=== PATIENT | female | born 1945 | race Caucasian/White ===

== ENCOUNTER 2019-07-18 09:00 | Emergency (ER) | payer MEDICARE, OTHER, SELFPAY ==
[2019-07-18] VITALS (7 sets, daily range): BP systolic 155–185; BP diastolic 76–85; PULSE 64–83; RESP 16–18; TEMP 36.5; O2SAT 98–99; BMI 22.8
--- NOTE | 2019-07-18 09:34 | DI.RAD.S_ITS ---
PROCEDURE: XR WRIST LT MIN 3V INDICATIONS: injury TECHNIQUE: 3 views of the wrist were acquired. COMPARISON: [facility], CR, XR RIBS LT MIN 3V W CXR1V, 07/18/2019, 9:34. FINDINGS: Bones: There is an impacted, dorsally angulated fracture of the distal radius. There is mild intra-articular involvement. No additional fractures are detected. No radiocarpal dislocation can be seen. No ulnar styloid fracture is seen. Age-appropriate bony degenerative changes are seen. Soft tissues: No suspicious soft tissue calcifications. IMPRESSION: Impacted, dorsally angulated fracture of the distal radius, with intra-articular involvement. Dictated by: Be Byers M.D. on 07/18/2019 at 9:11 Approved by: Be Byers M.D. on 07/18/2019 at 9:12
--- NOTE | 2019-07-18 09:35 | DI.RAD.S_ITS ---
PROCEDURE: XR RIBS LT MIN 3V W CXR1V INDICATIONS: injury TECHNIQUE: 2 views of the left ribs were acquired, along with a single view chest. COMPARISON: [facility], CR, XR WRIST LT MIN 3V, 07/18/2019, 9:34. FINDINGS: Surgical changes and devices: Upper abdominal sutures are seen. Bones and chest wall: No fractures or dislocations. No suspicious bony lesions. Overlying soft tissues appear unremarkable. Age-appropriate bony degenerative changes are seen. Lungs and pleura: No pleural effusions or pneumothorax. Lungs appear clear. Mediastinum: The cardiac contours are within normal limits. The aorta demonstrates calcification and tortuosity. IMPRESSION: No displaced rib fractures can be seen. No pneumothorax. Dictated by: Be Byers M.D. on 07/18/2019 at 9:10 Approved by: Be Byers M.D. on 07/18/2019 at 9:11
--- NOTE | 2019-07-18 11:10 | ED_ITS ---
HPI - Trauma General Chief Complaint: Extremity Injury, Upper Stated Complaint: fall left wrist and rib hurting and prob breathing Source: patient Mode of arrival: Ambulatory History of Present Illness HPI narrative: CC: Slip and fall on a wet deck injuring her left wrist and ribs. HPI: The patient is a 74-year-old female who was at her home on the [place] when she slipped on the wet deck next to the hot tub. She injured her left wrist trying to catch herself from falling and struck her left ribs against to the joseph of the hot tub. The paramedics were called at that point and they wanted to fly her from the [place] however she declined because she did not want to take any pain medication that she is allergic to. She denied any head injury neck injury back injury. She complains that her left lateral ribs are tender and sore. She has been short of breath and mildly coughing on productive of any sputum. She has had no palpitations. The pain has almost caused her to pass out. She denies any belly pain. She has been nauseous but has had no vomiting. She has a mild minimal headache. She was not incontinent of urine or stool. The patient works as an artist. She denies a history of hypertension diabetes mellitus stroke congestive heart failure myocardial infarction. She is right- hand dominant. Related Data Previous Rx's Medication Instructions Recorded ibuprofen 600 mg PO QID PRN #20 tab 07/18/19 ondansetron HCl [Zofran] 8 mg PO Q8H PRN #10 tab 07/18/19 Allergies Allergy/AdvReac Type Severity Reaction Status Date / Time codeine Allergy Verified 07/18/19 09:30 morphine Allergy Verified 07/18/19 09:30 Review of Systems Review of Systems Narrative: The patient's review of systems were all negative except for those mentioned in the history of present illness. Exam Narrative Exam Narrative: PHYSICAL EXAM: CONSTITUTIONAL: Awake, Alert, Oriented, Coherent, Cooperative in in mild distress lying supine in bed. She is splinting and holding her left wrist against her chest. HEAD: AT/NC EENT: PERRL, FROM of eyes, no discharge, No drainage from the ears, Tympanic membranes intact bilaterally, clear EAC No epistaxis or nasal drainage Oral mucosa is moist and pink, posterior pharynx is without erythema or exudate. NECK: Supple, no obvious JVD, Trachea is midline without stridor, no palpable LN .. SPINE: No gross deformity, no palpable tenderness of the cervical, thoracic, lumbar or sacral spine. No CVA tenderness. THORAX: There is no gross deformity, intercostal retractions. However the patient's left lower lateral anterior ribs are exquisitely tender to palpation without crepitus subcutaneous air or palpable deformity. LUNGS: Reveals symmetrical decreased breath sounds bilaterally that are clear. HEART: Normal heart tones, regular rhythm and rate without murmur. ABDOMEN: Soft, non-tender, normal bowel sounds without guarding, rebound, rigidity or palpable mass . EXTREMITIES: The patient's dorsal left wrist and hand are ecchymotic. The patient is exquisitely tender to palpation over the distal left radius. SKIN: The skin over the dorsal distal forearm and proximal left hand is ec chymotic. There is no rash otherwise noted. NEURO: Awake, alert, oriented, conversive, there is no focal facial asymmetry/ cranial nerves II-XII are symmetrical moves all 4 extremities and is ambulatory Initial Vital Signs Initial Vital Signs: Vital Signs Temperature 97.7 F 07/18/19 09:30 Pulse Rate 83 07/18/19 09:30 Respiratory Rate 16 07/18/19 09:30 Blood Pressure 185/85 H 07/18/19 09:30 Pulse Oximetry 99 07/18/19 09:30 Course Course Course Narrative: 1113 the patient is very painful and tender. Her pain is 8 to 10/10 in intensity. She took 2 ibuprofen tablets without any relief. She becomes intensely nauseous and vomiting with opiates. Will administer 8 mg of Zofran IV and then 0.5 mg of Dilaudid. The patient has distracting injuries with her left rib pain and wrist pain. She is now complaining of a headache. Trauma CTs of her head neck and chest will be ordered. X-rays reveal that the patient has a in impacted dorsally angulated fracture of the distal radius extending into the intra-articular joint. X-ray of the left ribs do not reveal any fractures. The patient has in severe pain and discomfort because fractures only show up on x-rays 20% of the time a CT of the patient's chest will be obtained. 1238 CT scan of the patient's head and neck are negative for any acute pathology or hemorrhage. The results of the CT of the chest remain pending. The patient has a fracture distal radius. [address] scan of her chest is negative for any fractures contusions or signs of trauma. The patient will be discharged home. She does not want any pain medicines other than taking Advil. She has been placed in a splint for her wrist which feels much better. She will follow-up with her orthopedic surgeon through [facility] and return to the [facility]. She is headed back to the [place] and then to [place]. 1500 the patient was being discharged and she developed a severe intense nausea secondary to the Dilaudid 0.5 mg IV for her pain and discomfort. She has been administered a total of 16 mg of Zofran without relief. She has been administered 10 mg of Reglan with 25 mg of Benadryl. Orders Ordered: Discontinued Medications Diphenhydramine HCl (Benadryl) 25 mg IV NOW ONE Stop: 07/18/19 15:10 Last Admin: 07/18/19 15:17 Dose: 25 mg Documented by: ELIAS Hydromorphone HCl (Dilaudid) 0.5 mg IV NOW ONE Stop: 07/18/19 11:16 Last Admin: 07/18/19 12:24 Dose: 0.5 mg Documented by: RAFAELA Sodium Chloride (Normal Saline 0.9%) 1,000 mls @ 1,000 mls/hr IV BOLUS ONE Stop: 07/18/19 12:14 Last Infusion: 07/18/19 13:05 Dose: 0 mls/hr Documented by: Admin: 07/18/19 11:40 Dose: 1,000 mls/hr Documented by: RAFAELA Ondansetron HCl 8 mg/ Sodium (Chloride) 54 mls @ 216 mls/hr IV NOW ONE Stop: 07/18/19 11:16 Last Infusion: 07/18/19 11:56 Dose: 0 mls/hr Documented by: Admin: 07/18/19 11:41 Dose: 216 mls/hr Documented by: RAFAELA Ondansetron HCl 8 mg/ Sodium (Chloride) 54 mls @ 216 mls/hr IV NOW ONE Stop: 07/18/19 13:35 Last Infusion: 07/18/19 14:15 Dose: 0 mls/hr Documented by: Admin: 07/18/19 13:59 Dose: 216 mls/hr Documented by: ELIAS Metoclopramide HCl (Reglan) 10 mg IV NOW ONE Stop: 07/18/19 15:10 Vital Signs Vital signs: Vital Signs - 8 hr 07/18/19 14:30 07/18/19 15:00 07/18/19 16:00 Pulse Rate 70 75 79 Respiratory Rate 16 16 Blood Pressure [Right Arm] 155/76 H 183/79 H 183/81 H Pulse Oximetry 98 99 98 MDM - Trauma Lab Data Result diagrams: 07/18/19 11:35 07/18/19 11:35 Labs: Lab Results 07/18/19 07/18/19 Range/Units 11:35 11:35 WBC 7.2 (4.5-11.0) X10^3/uL RBC 3.90 L (4.0-5.2) X10^6/uL Hgb 13.9 (12.0-16.0) g/dL Hct 40.6 (36-46) % MCV 104.0 H (80-100) fL MCH 35.5 H (26-34) PG MCHC 34.2 (30-36) % RDW 13.2 (11.6-14.8) % Plt Count 273 (150-400) X10^3/uL Neut % (Auto) 73.4 (50-75) % Lymph % (Auto) 15.2 L (25-40) % [place] % (Auto) 8.1 (3-14) % Eos % (Auto) 2.5 (2-4) % Baso % (Auto) 0.8 (0-2) % Neut # (Auto) 5300 (9222-9612) /uL Lymph # (Auto) 1100 (3719-0285) /uL [place] # (Auto) 600 (0-900) /uL Eos # (Auto) 200 (0-450) /uL Baso # (Auto) 100 (0-100) /uL Sodium 137 (137-145) mmol/L Potassium 3.8 (3.4-5.1) mmol/L Chloride 100 (98-107) mmol/L Carbon Dioxide 29 (22-32) mmol/L BUN 12 (7-17) mg/dL Creatinine 0.60 (0.52-1.04) mg/dL Estimated GFR > 60.0 (>60) mL/min BUN/Creatinine Ratio 20.0 (6-22) Glucose 114 H (80-110) mg/dL Calcium 9.2 (8.4-10.2) mg/dL Total Bilirubin 1.2 (0.2-1.3) mg/dL AST 28 (14-36) IU/L ALT 16 (<35) IU/L Alkaline Phosphatase 69 (38-126) U/L Total Protein 8.4 H (6.3-8.2) g/dL Albumin 4.3 (3.5-5.0) g/dL Globulin 4.1 (1.7-4.1) g/dL Albumin/Globulin Ratio 1.0 (1.0-2.8) Discharge Plan Departure Patient Disposition: Home Clinical Impression: Fracture of wrist Qualifiers: Encounter type: initial encounter Fracture type: closed Laterality: left Qualified Code(s): S62.102A - Fracture of unspecified carpal bone, left wrist, initial encounter for closed fracture Fracture of radius Qualifiers: Encounter type: initial encounter Radius location: distal Fracture type: closed Fracture morphology: other fracture Laterality: left Qualified Code(s): S52.592A - Other fractures of lower end of left radius, initial encounter for closed fracture Chest wall contusion Qualifiers: Encounter type: initial encounter Laterality: left Qualified Code(s): S20.212A - Contusion of left front wall of thorax, initial encounter Contusion of rib Qualifiers: Encounter type: initial encounter Laterality: left Qualified Code(s): S20.212A - Contusion of left front wall of thorax, initial encounter Discharge Date/Time: 07/18/19 16:19 Instructions: DI for Wrist Fracture, DI for Rib Contusion, DI for Distal Radius Fracture Activity Restrictions/Additional Instructions: 1. Take Motrin or ibuprofen for your pain and discomfort. 2. Keep the splint on your your wrist use the sling as necessary 3. The patient wants to follow-up with her own orthopedic surgeon through the [facility] through [facility] 4. Proceed to the nearest emergency department if you develop dizziness lightheadedness difficulty in breathing shortness of breath or passing out. 5. Apply cold compresses to your wrist every 2-3 hours for the next 48 hours. Prescriptions: New ibuprofen 600 mg tablet 600 mg PO QID PRN (Reason: pain) Qty: 20 RF: 0 ondansetron HCl [Zofran] 8 mg tablet 8 mg PO Q8H PRN (Reason: nausea and vomiting) Qty: 10 RF: 0
--- NOTE | 2019-07-18 11:15 | DI.CT.S_ITS ---
PROCEDURE: CT HEAD/BRAIN WO CON INDICATIONS: fall, headache, painful ribs fractured left wrist TECHNIQUE: Noncontrast 4.5 mm thick angled axial sections acquired from the foramen magnum to the vertex, with coronal and sagittal reformats. For radiation dose reduction, the following was used: automated exposure control, adjustment of mA and/or kV according to patient size. COMPARISON: [facility], CR, XR RIBS LT MIN 3V W CXR1V, 07/18/2019, 9:34. [facility], CT, CT CERVICAL SPINE WO CON, 07/18/2019, 12:01. FINDINGS: Image quality: Excellent. CSF spaces: Basal cisterns are patent. No extra-axial fluid collections. The ventricles are symmetric in size and shape. Brain: No intracranial bleeds or masses. There is cerebral volume loss for age, with resultant ventricular and sulcal prominence. There are periventricular and deep white matter chronic small vessel ischemic changes. There is intracranial internal carotid artery atherosclerosis. Skull and face: Calvarium and visualized facial bones appear intact, without suspicious lesions. Sinuses: Visualized sinuses and mastoids are clear. IMPRESSION: No acute intracranial process is seen. No acute intracranial hemorrhage is seen. Note is made of age-appropriate brain parenchymal volume loss and chronic small vessel ischemic changes. Dictated by: Be Byers M.D. on 07/18/2019 at 11:30 Approved by: Be Byers M.D. on 07/18/2019 at 11:31
--- NOTE | 2019-07-18 11:15 | DI.CT.S_ITS ---
PROCEDURE: CT CERVICAL SPINE WO CON INDICATIONS: Trauma: slip and fall, Headache, Rib chest pain, fractured w TECHNIQUE: Noncontrast 3 mm thick sections acquired from the skull base to the T4 level. Sagittal and coronal reformats were then constructed. For radiation dose reduction, the following was used: automated exposure control, adjustment of mA and/or kV according to patient size. COMPARISON: [facility], CT, CT CHEST W CON, 07/18/2019, 12:06. [facility], CT, CT HEAD/BRAIN WO CON, 07/18/2019, 12:01. [facility], CR, XR WRIST LT MIN 3V, 07/18/2019, 9:34. [facility], CR, XR RIBS LT MIN 3V W CXR1V, 07/18/2019, 9:34. FINDINGS: Image quality: Excellent. Bones: No fractures or dislocations. Visualized superior ribs are intact. Degenerative changes are seen, with moderate to severe disc space narrowing at the C5-C6 and C6-C7 levels. Milder degenerative changes are seen elsewhere. Minimal retrolisthesis is seen at the C4-C5 level. Soft tissues: Focal prominent calcification of the proximal left subclavian artery can be seen. Prevertebral soft tissues are normal in thickness. No paravertebral hematomas. No apical pneumothoraces. IMPRESSION: No acute fractures are seen. Lower cervical spine degenerative changes are seen. Prominent focal calcification is seen of the proximal subclavian artery. Dictated by: Be Byers M.D. on 07/18/2019 at 11:31 Approved by: Be Byers M.D. on 07/18/2019 at 11:33
--- NOTE | 2019-07-18 11:19 | DI.CT.S_ITS ---
PROCEDURE: CT CHEST W CON INDICATIONS: Trauma: slip and fall, Headache, Rib chest pain, fractured wrist TECHNIQUE: After the administration of intravenous contrast, 5 mm thick sections acquired from the pulmonary apices to the posterior costophrenic angles. 1 mm axial lung, 5 mm thick coronal and sagittal reformats and 7 mm axial MIP were acquired. For radiation dose reduction, the following was used: automated exposure control, adjustment of mA and/or kV according to patient size. COMPARISON: [facility], CT, CT HEAD/BRAIN WO CON, 07/18/2019, 12:01. [facility], CT, CT CERVICAL SPINE WO CON, 07/18/2019, 12:01. [facility], CR, XR WRIST LT MIN 3V, 07/18/2019, 9:34. [facility], CR, XR RIBS LT MIN 3V W CXR1V, 07/18/2019, 9:34. FINDINGS: Image quality: Excellent. Lungs and pleura: No acute air space opacities. Mild dependent streaky atelectasis can be seen. No pleural effusions or pneumothorax. Central and peripheral airways are patent and normal in caliber. Mediastinum: Heart size is normal. No pericardial effusion. No mediastinal or hilar adenopathy by size criteria. Thoracic aorta and central pulmonary arteries are normal in size. Focal prominent calcification can be seen involving the proximal left subclavian artery. Flow can be seen within the left subclavian artery. Coronary artery calcifications are seen. Esophagus is normal in caliber. No hiatal hernia. Bones and chest wall: In this patient with this given history, scrutiny is given to the left ribs. No displaced left rib fractures are seen. No displaced fractures are detected elsewhere. Age-appropriate bony degenerative changes are seen. No suspicious bony lesions. No vertebral body compression fractures. No axillary or supraclavicular adenopathy by size criteria. Thyroid gland is not definitely seen. Abdomen: Visualized upper abdominal solid organs appear normal. Upper abdominal bowel loops are normal in caliber. IMPRESSION: No displaced left rib fractures are seen. No displaced fractures are seen elsewhere. No pneumothorax. Incidental note is made of: Nonvisualization of the thyroid Focal prominent calcification of the left subclavian artery proximally Coronary artery calcifications Dictated by: Be Byers M.D. on 07/18/2019 at 11:33 Approved by: Be Byers M.D. on 07/18/2019 at 11:37
[2019-07-18] MEDS: SODIUM CHLORIDE 0.9% 1,000 ML 1000 ML IV (11:40)
[2019-07-18] MEDS: ONDANSETRON 8 MG in SODIUM CHLORIDE 0.9% 50 ML 216 ML IV ×2 (11:41→13:59)
[2019-07-18 11:42] LABS: Add Manual Diff / Slide Review NO; Basophils Absolute Auto 100 /uL (0-100); Basophils Percent Auto 0.8 % (0-2); Eosinophils Absolute Auto 200 /uL (0-450); Eosinophils Percent Auto 2.5 % (2-4); Hematocrit 40.6 % (36-46); Hemoglobin 13.9 g/dL (12.0-16.0); Lymphocytes Absolute Auto 1100 /uL (1100-4500); Lymphocytes Percent Auto 15.2 % (25-40); Mean Corpuscular HGB Conc 34.2 % (30-36); Mean Corpuscular Hemoglobin 35.5 PG (26-34); Monocytes Absolute Auto 600 /uL (0-900); Monocytes Percent Auto 8.1 % (3-14); Neutrophils Absolute Auto 5300 /uL (1500-7000); Neutrophils Percent Auto 73.4 % (50-75); Platelet Count 273 X10^3/uL (150-400); Red Cell Distribution Width 13.2 % (11.6-14.8); White Blood Cell Count 7.2 X10^3/uL (4.5-11.0)
[2019-07-18 11:52] LABS: Alanine Aminotransferase 16 IU/L (<35); Albumin 4.3 g/dL (3.5-5.0); Alkaline Phosphatase 69 U/L (38-126); Aspartate Aminotransferase 28 IU/L (14-36); Bilirubin Total 1.2 mg/dL (0.2-1.3); Blood Urea Nitrogen 12 mg/dL (7-17); Calcium 9.2 mg/dL (8.4-10.2); Carbon Dioxide 29 mmol/L (22-32); Chloride 100 mmol/L (98-107); Estimated Glomerular Filt Rate > 60.0 mL/min (>60); Globulin 4.1 g/dL (1.7-4.1); Glucose 114 mg/dL (80-110); HEMOLYSIS < 15 (0-50); Potassium 3.8 mmol/L (3.4-5.1); Sodium 137 mmol/L (137-145); Total Protein 8.4 g/dL (6.3-8.2)
[2019-07-18] MEDS: HYDROMORPHONE 0.5 MG INJ IV (12:24)
--- NOTE | 2019-07-18 14:55 | PC.NURSE ---
Pt fails PO challenge, vomiting. Pt resistant to taking more meds for same.
[2019-07-18] MEDS: diphenhydrAMINE 50 MG/ML VIAL 25 MG IV (15:17)
== END 2019-07-18 16:19 | disposition home or self-care (01) ==
PROVIDERS: Emergency Provider Emergency Medicine
DX: S62.102A Fracture of unspecified carpal bone, left wrist, initial encounter for closed fracture (principal); S52.592A Other fractures of lower end of left radius, initial encounter for closed fracture; S20.212A Contusion of left front wall of thorax, initial encounter; W01.198A Fall on same level from slipping, tripping and stumbling with subsequent striking against other object, initial encounter; R51 Headache; M47.812 Spondylosis without myelopathy or radiculopathy, cervical region
CPT/HCPCS: 70450; 71101; 71260; 72125; 73110; 80053; 85025; 96361; 96365; 96375; 99284; J1170; J1200; J2405; Q9967